=== PATIENT | male | born 2000 | race American Indian/Alaskan Native ===

== ENCOUNTER 2021-01-07 14:05 | Emergency (ER) | payer MEDICAID ==
[2021-01-07 14:34] VITALS: BP 108/52
[2021-01-07] MEDS ORDERED: IBUPROFEN 600 MG TAB PO ONE (15:15)
[2021-01-07] MEDS ORDERED: SODIUM CHLORIDE 0.9% IRR 500 ML BOTTLE IR ONE (15:15)
--- NOTE | 2021-01-07 15:15 | Event Note ---
ED Screening Note ED Screening Note: This initial assessment/diagnostic orders/clinical plan/treatment(s) is/are subject to change based on patients health status, clinical progression and re- assessment by fellow clinical providers in the ED. Further treatment and workup at subsequent clinical providers discretion. Patient/guardian urged not to elope from the ED as their condition may be serious if not clinically assessed and managed. Initial orders include: TO FX WOUND CARE
--- NOTE | 2021-01-07 15:59 | XRay Report ---
LEFT HAND 3 VIEWS INDICATION: LT LITTLE FINGER INJURY AT WORK. COMPARISON: None. IMPRESSION: No acute osseous or soft tissue abnormality. No significant DJD. Signer Name: Franco Mcdermott Jr, MD Signed: 01/07/2021 3:54 PM Workstation Name: [id number]
--- NOTE | 2021-01-07 16:05 | Emergency Department Report ---
ED Upper Extremity Inj HPI - General Chief Complaint: Extremity Injury, Upper Stated Complaint: LT PINKY INJURY Time Seen by Provider: 01/07/21 15:08 Source: patient Mode of arrival: Ambulatory Limitations: No Limitations - History of Present Illness Initial Comments: Patient is a 20-year-old male that comes to the emergency room after being involved in a accident at work today. He states that a piece of equipment came down and crushed his hand. He states that his finger was dislocated but he popped it back into the joint. He has a small laceration to the palm of his hand. He is neurovascularly intact. He denies any other trauma. He is ambulatory to the ER no acute distress MD Complaint: Injury to:: left -: Sudden, hour(s) Other Extremity Injury: Hand: Left Other Injuries: none Handedness: right Place: work Improves With: none Worsens With: movement of extremity Context: direct blow Associated Symptoms: denies other symptoms - Related Data Previous Rx's Medication Instructions Recorded Last Taken Type Ibuprofen [Motrin] 800 mg PO Q8HR PRN #30 tablet 01/07/21 Unknown Rx Allergies Allergy/AdvReac Type Severity Reaction Status Date / Time No Known Allergies Allergy Unverified 01/07/21 14:28 ED Review of Systems ROS: Stated complaint: LT PINKY INJURY Other details as noted in HPI Comment: All other systems reviewed and negative ED Past Medical Hx - Past Medical History Previous Medical History?: Yes Hx Asthma: Yes - Surgical History Past Surgical History?: No - Family History Family history: no significant - Social History Smoking Status: Current Every Day Smoker Substance Use Type: Alcohol - Medications Home Medications: Home Medications Medication Instructions Recorded Confirmed Last Taken Type Ibuprofen [Motrin] 800 mg PO Q8HR PRN #30 tablet 01/07/21 Unknown Rx ED Physical Exam - General Limitations: No Limitations General appearance: alert, in no apparent distress - Head Head exam: Present: atraumatic, normocephalic - Eye Eye exam: Present: normal appearance - ENT ENT exam: Present: mucous membranes moist - Neck Neck exam: Present: normal inspection - Respiratory Respiratory exam: Present: normal lung sounds bilaterally. Absent: respiratory distress - Cardiovascular Cardiovascular Exam: Present: regular rate, normal rhythm. Absent: systolic murmur, diastolic murmur, rubs, gallop - GI/Abdominal GI/Abdominal exam: Present: soft, normal bowel sounds - Rectal Rectal exam: Present: deferred - Extremities Exam Extremities exam: Present: normal inspection - Back Exam Back exam: Present: normal inspection - Neurological Exam Neurological exam: Present: alert, oriented X3 - Psychiatric Psychiatric exam: Present: normal affect, normal mood - Skin Skin exam: Present: warm, dry, intact, other. Absent: rash ED Course Vital Signs 01/07/21 01/07/21 14:33 15:27 Temperature 98.3 F Pulse Rate 71 Respiratory 18 18 Rate Blood Pressure 108/52 O2 Sat by Pulse 98 Oximetry ED Medical Decision Making - Radiology Data Radiology results: report reviewed, image reviewed NEG - Medical Decision Making X-ray noted. Tdap is up-to-date. Wound cleaned and dressed. Patient neurovascularly intact. Medicated with Motrin for pain Patient being discharged home with discharge plan of care including PCP orthopedic or Workmen's Comp. follow-up for reevaluation of his hand. Patient being discharged home with a large bulky dressing, wound care and follow-up instructions. Patient verbalizes understanding of discharge plan Vital Signs 01/07/21 01/07/21 14:33 15:27 Temperature 98.3 F Pulse Rate 71 Respiratory 18 18 Rate Blood Pressure 108/52 O2 Sat by Pulse 98 Oximetry - Differential Diagnosis RO FX Critical care attestation.: If time is entered above; I have spent that time in minutes in the direct care of this critically ill patient, excluding procedure time. ED Disposition Clinical Impression: Hand contusion, Hand abrasion Disposition: DC-01 TO HOME OR SELFCARE Is pt being admited?: No Does the pt Need Aspirin: No Condition: Stable Instructions: Contusion Additional Instructions: ICE REST ELEVATE HAND KEEP WOUND CLEAN AND DRY FOLLOW UP WITH WORK COMP OR PCP/ORTHO IN 48 HOURS FOR RECHECK REFERRALS BELOW MED ORDERED TODAY FOR PAIN Prescriptions: Ibuprofen [Motrin] 800 mg PO Q8HR PRN #30 tablet PRN Reason: Pain, Moderate (4-6) Referrals: IGOR NUNES MD [Staff Physician] - 3-5 Days YANETH TATE MD [Staff Physician] - 3-5 Days Time of Disposition: 16:04
== END 2021-01-07 17:01 | disposition home or self-care (01) ==
LOC: ED 14:05
DX: S60.222A Contusion of left hand, initial encounter (principal); F17.200 Nicotine dependence, unspecified, uncomplicated; J45.909 Unspecified asthma, uncomplicated; Z79.899 Other long term (current) drug therapy; W45.8XXA Other foreign body or object entering through skin, initial encounter; Y93.89 Activity, other specified; Y92.89 Other specified places as the place of occurrence of the external cause; Y99.0 Civilian activity done for income or pay